=== PATIENT | male | born 1955 | race Caucasian/White ===

== ENCOUNTER 2022-12-24 11:12 | Emergency (ER) | payer BC, SELFPAY ==
--- NOTE | 2022-12-24 11:42 | ED.BACK ---
HPI - Back Pain/Injury General Chief Complaint: Abdominal Pain Stated Complaint: lt side pain Time Seen by Provider: 12/24/22 11:42 Source: patient and RN notes reviewed History of Present Illness HPI Narrative: Patient is a 67-year-old male who presents to urgent care with complaints of left lower quadrant pain. Patient states that it started with pressure on Sunday and got more severe yesterday. Patient states he does have an appointment with his doctor in the morning however the pain has gotten worse. Patient states he does have a history of diverticulitis and feels that it ?is consistent with that pain?. However it has been approximately 10 years since his last flare up and there is no record on file. Patient states he did go to [facility] at that time and was admitted to the hospital. Patient denies any fevers, nausea, vomiting or diarrhea. No other acute complaints. No acute distress noted. Patient aware of the plan of care. Some parts of this dictation were generated by voice recognition software and may contain typographical and/or grammatical inaccuracies. Related Data Home Medications Medication Instructions Recorded Confirmed atorvastatin 40 mg tablet mg 12/24/22 lisinopril 10 mg tablet mg 12/24/22 Allergies Allergy/AdvReac Type Severity Reaction Status Date / Time No Known Allergies Allergy Mild Verified 12/24/22 11:48 Review of Systems Review of Systems: CONSTITUTIONAL: Denies fever, chills, or sweats. EYES: Denies visual changes, redness, or discharge. ENT: Denies rhinorrhea, congestion, sore throat, or otalgia. CARDIOVASCULAR: Denies chest pain, palpitations, or edema. RESPIRATORY: Denies cough or dyspnea. GASTROINTESTINAL: Reports of left lower quadrant pain GENITOURINARY: Denies dysuria or hematuria. SKIN: Denies rash or itching. MUSCULOSKELETAL: Denies back pain, joint pain, or myalgia. NEUROLOGIC: Denies headache, numbness, or weakness. All other systems reviewed are negative, except as documented in HPI. [facility] Social History Social History (System 10/21/19 @ 09:59 by Zoey Jones) Smoking status: Never smoker Alcohol intake: current Comments At the time of my signature, I reviewed and agree with the nursing past medical, surgical, social, and family history. There is no relevant family history pertinent to the patient complaint. Exam Narrative: GENERAL: This is a well-nourished, well-developed patient, in no apparent distress. HEAD: normocephalic, atraumatic. EYES: PERRL. Sclera clear/white. Vision is grossly intact. EARS: External ears normal NOSE: External nose normal with no obvious nasal discharge, nares without redness, no rhinorrhea. THROAT: Mucous membranes moist NECK: Neck supple GASTROINTESTINAL: Abdomen soft, moderate left lower quadrant tenderness, nondistended. Bowel sounds are active. SKIN: warm, intact with no suspicious lesions or rash, good texture and turgor. NEURO: awake, alert, and oriented to person, place and time. There were no obvious focal neurologic abnormalities. EXTREMITIES: No clubbing, cyanosis, or edema. BACK: Negative bilateral CVA tenderness Course Course Level of Care: Express Care Visit Vital Signs Vital signs: Vital Signs Temperature 98.3 F 12/24/22 11:48 Pulse Rate 101 H 12/24/22 11:48 Respiratory Rate 12 12/24/22 11:48 Blood Pressure 122/73 12/24/22 11:48 Pulse Oximetry 96 12/24/22 11:48 Oxygen Delivery Room Air 12/24/22 11:48 Temperature 98.3 F 12/24/22 11:49 Pulse Rate 101 H 12/24/22 11:49 Respiratory Rate 12 12/24/22 11:49 Blood Pressure 122/73 12/24/22 11:49 Pulse Oximetry 96 12/24/22 11:49 Oxygen Delivery Room Air 12/24/22 11:49 Reviewed MDM - Back Pain/Injury MDM Narrative Medical decision making narrative: Due to patient's past medical history on diverticulitis and admission to hospital, advised ER evaluation for abdominal pain. Patient states he does not wish
[2022-12-24 11:48] VITALS: BP 122/73; PULSE 101; RESP 12; TEMP 36.8; O2SAT 96
[2022-12-24 11:49] VITALS: BP 122/73; PULSE 101; RESP 12; TEMP 36.8; O2SAT 96
== END 2022-12-24 12:12 | disposition left against medical advice (07) ==
PROVIDERS: Emergency Provider Nurse Practitioner Family
DX: R10.32 Left lower quadrant pain (principal)
CPT/HCPCS: 99202; G0463

== ENCOUNTER 2024-09-04 16:15 | Outpatient (RCR) | payer OTHER, SELFPAY | END 2024-09-18 09:30 | disposition home or self-care (01) | LOC: ANHCPREHAB 16:15 | DX: Z98.61 Coronary angioplasty status (principal) | CPT/HCPCS: 93798 ==